=== PATIENT | female | born 1975 | race African-American/Black ===

== ENCOUNTER 2025-03-11 22:13 | Emergency (ER) | payer OTHER ==
[~2025-03-11] VITALS: Ht 165.1 cm; Wt 92.7 kg
[2025-03-11 22:21] VITALS: TEMP 37.1; O2SAT 97
[2025-03-11 23:49] LABS: BASOPHILS % 0.8 % (0.0-2.0); EOSINOPHILS % 5.3 % (0.0-5.0); HEMATOCRIT. 36.7 % (36.0-48.0); HEMOGLOBIN. 11.7 g/dL (12.0-16.0); LYMPHOCYTES % 32.9 % (20.0-50.0); MEAN PLATELET VOLUME 8.8 fl (7.4-10.4); MONOCYTES % 5.5 % (2.0-8.0); NEUTROPHILS % 55.5 % (40.0-76.0); PLATELET 279 x1000/uL (130-400); RED BLOOD CELL COUNT 4.65 mill/uL (4.2-5.4); RED CELL DISTRIBUTION WIDTH 17.3 % (11.6-14.6)
[2025-03-11] MEDS: MAGNESIUM/ALUMINUM HYDROXIDE/SIMETHICONE 30ML UDC PO ONE (23:51)
[2025-03-11] MEDS: FAMOTIDINE 20MG TABLET PO SCH (23:51)
[2025-03-12 00:02] LABS: CREATININE 0.8 mg/dL (0.6-1.0); UREA NITROGEN BLOOD 13 mg/dL (9-23)
[2025-03-12 00:03] LABS: TROPONIN I HIGH SENSITIVITY 31 ng/L (3.0-34)
[2025-03-12 01:12] LABS: TROPONIN I HIGH SENSITIVITY 33 ng/L (3.0-34)
[2025-03-12 01:50] VITALS: BP 113/54; PULSE 62; RESP 13; O2SAT 99
== END 2025-03-12 01:56 | disposition home or self-care (01) ==
LOC: ER 22:13
DX: R07.89 Other chest pain (principal); I10 Essential (primary) hypertension; E03.9 Hypothyroidism, unspecified; Z98.84 Bariatric surgery status; Z90.710 Acquired absence of both cervix and uterus; Z79.899 Other long term (current) drug therapy
CPT/HCPCS: 36415; 71045; 80048; 81025; 84484; 85025; 93005; 99285